=== PATIENT | male | born 1945 | race Caucasian/White ===

== ENCOUNTER → 2023-11-12 09:49 | Outpatient (REF) | payer MEDICARE, OTHER, SELFPAY | LOC: HWRAD 09:49 | PROVIDERS: ATTENDING PHYSICIAN Ophthalmology; FAMILY PHYSICIAN Internal Medicine | DX: G45.3 Amaurosis fugax (principal) | CPT/HCPCS: 93880 ==

== ENCOUNTER → 2023-11-12 11:27 | Outpatient (REF) | payer MEDICARE, OTHER, SELFPAY | LOC: DHCBC HW 11:27 | PROVIDERS: ATTENDING PHYSICIAN Internal Medicine Cardiovascular Disease; FAMILY PHYSICIAN Internal Medicine | DX: R00.2 Palpitations (principal); I63.9 Cerebral infarction, unspecified; G45.3 Amaurosis fugax | CPT/HCPCS: 93306; 93880 ==

== ENCOUNTER → 2024-10-20 11:15 | Outpatient (REF) | payer MEDICARE, OTHER, SELFPAY | LOC: HWRAD 11:15 | PROVIDERS: ATTENDING PHYSICIAN Internal Medicine Cardiovascular Disease; FAMILY PHYSICIAN Internal Medicine | DX: I63.9 Cerebral infarction, unspecified (principal); R42 Dizziness and giddiness; I67.2 Cerebral atherosclerosis | CPT/HCPCS: 93880 ==

== ENCOUNTER → 2024-11-21 08:49 | Outpatient (REF) | payer MEDICARE, OTHER, SELFPAY | LOC: RAD 08:49 | PROVIDERS: ATTENDING PHYSICIAN Nurse Practitioner Family; FAMILY PHYSICIAN Internal Medicine | DX: D50.9 Iron deficiency anemia, unspecified (principal); D64.9 Anemia, unspecified | CPT/HCPCS: 74177; Q9967 ==

== ENCOUNTER 2024-12-08 06:24 | Day surgery (SDC) | payer MEDICARE, OTHER, SELFPAY ==
[2024-12-08 08:55] LABS: Glucose - Point of Care 147 mg/dl (70-99)
== END 2024-12-08 10:45 | disposition home or self-care (01) ==
LOC: GI 06:24
PROVIDERS: ATTENDING PHYSICIAN Internal Medicine Gastroenterology; FAMILY PHYSICIAN Internal Medicine
DX: D50.9 Iron deficiency anemia, unspecified (principal); K64.8 Other hemorrhoids; D17.5 Benign lipomatous neoplasm of intra-abdominal organs; K29.70 Gastritis, unspecified, without bleeding; K31.89 Other diseases of stomach and duodenum
CPT/HCPCS: 45378; 43239; 88305; 82962; 88342

== ENCOUNTER 2025-02-09 14:30 | Outpatient (RCR) | payer MEDICARE, OTHER, SELFPAY ==
[2025-02-02 14:51] VITALS: BP 132/61
[2025-02-02] MEDS: INJECTAFER 265 MG IV (14:52)
[2025-02-02 16:05] VITALS: BP 102/55
[2025-02-02 16:10] VITALS: BP 107/55
[2025-02-09 14:35] VITALS: BP 137/67
[2025-02-09] MEDS: INJECTAFER 265 MG IV (14:47)
[2025-02-09 15:34] VITALS: BP 131/54
== END 2025-02-12 10:23 | disposition home or self-care (01) ==
LOC: OID 14:30
PROVIDERS: ATTENDING PHYSICIAN Internal Medicine
DX: D50.9 Iron deficiency anemia, unspecified (principal)
CPT/HCPCS: 96365; J1439